=== PATIENT | female | born 1945 | race Caucasian/White ===

== ENCOUNTER 2022-02-17 06:45 | Day surgery (SDC) | payer MEDICARE ==
[~2022-02-17] VITALS: Ht 152.4 cm; Wt 88.2 kg
[~2022-02-17 06:45] MED LIST: CRESTOR5 MG PO
[2022-02-17] MEDS ORDERED: ACETAMINOPHEN500 MG PO (12:49)
[2022-02-17] MEDS ORDERED: IBUPROFEN600 MG PO (12:49)
[2022-02-17] MEDS ORDERED: OXYCODON-ACETA1 EAC2 PO (12:49)
--- NOTE | 2022-02-18 14:40 | OR ---
[facility] [address] [place], [place] [address] Signed DATE OF OPERATION: 02/17/2022 SURGEON: Madhuri Marshall MD PREOPERATIVE DIAGNOSIS: Left upper outer quadrant "papillary proliferation" uncertain regarding malignancy. POSTOPERATIVE DIAGNOSIS: Left upper outer quadrant "papillary proliferation" uncertain regarding malignancy. PROCEDURE: Left needle localized upper outer quadrant partial mastectomy. ANESTHESIA: General, LMA, Kashif Campos, BUSINESS SERVICES DIRECTOR INDICATIONS: This 76-year-old white woman is a patient of JULIO Willoughby. She underwent a mammogram which showed a cluster of calcifications and density of the breast highly suggestive of malignancy. She underwent core needle biopsy by Dr. Dasia Crespo ( radiologist). Pathology report was somewhat ambiguous showing tissue which was described as "atypical proliferation with possible invasive carcinoma." There does appear to be a palpable mass in the area in question. As there has been no definitive diagnosis for malignancy despite a biopsy well within the lesion in question, resectional therapy with needle localized guidance is recommended. Since a malignant diagnosis has not yet been established, one would not proceed with sentinel lymph node biopsy concurrently. At this time, needle localized excisional therapy is appropriate for definitive diagnosis. If malignancy is found, she understands there may be additional surgery to do particularly sentinel lymph node biopsy of the left axilla. Understanding the risk of bleeding, infection, cosmetic deformity, need for additional treatment should malignancy be found, and so forth, she wished to proceed. FINDINGS: Indeed the area was palpable and highly suspicious. Needle localization allowed for accurate localization of the abnormality though the palpable mass certainly was well demonstrated as well. Wide excision was undertaken excising a considerable amount of upper outer aspect breast tissue. This specimen was oriented with a short stitch superior long stitch laterally. Specimen radiograph confirmed the offending lesion to be in the specimen excised and was considered "optimal" by the radiologist. Parenchymal reapproximation was undertaken filling in the defect. Cosmetic result was good. Electronically Signed By: MADHURI MARSHALL MD 02/18/22 1440 PATIENT NAME: JAYLAN WARD OPERATIVE REPORT DATE OF : 41 REPORT #: [id number] PHYSICIAN: MADHURI MARSHALL MD PCP: TERE MCKEON PA-C REPORT IS CONFIDENTIAL AND NOT TO BE RELEASED WITHOUT AUTHORIZATION [facility] [address] [place], [place] [address] Signed DESCRIPTION OF PROCEDURE: The patient was received from the radiology suite with the wire emanating from the medial upper aspect of the left breast. I reviewed the films in detail with Dr. Calabrese. She had additionally marked the area corresponding to the dominant lesion. Palpation showed the lesion to be well demonstrated. After satisfactory general LMA anesthetic and administration of preoperative antibiotics, the left breast was prepared with a spray Betadine solution and draped sterilely. A curvilinear incision was made in the upper outer quadrant allowing for dissection through the dermis with electrocautery. The wire which was directed from medial to lateral was withdrawn through the depths of the wound and the parenchyma grasped with an Allis clamp. Palpation within the breast parenchyma demonstrated a thickened area, this was widely resected with electrocautery. A considerable excision of tissue was undertaken to provide a clinically negative margin. Wide resection was undertaken and the specimen was marked with a short stitch superior and long stitch lateral for extracting it from the breast itself. Once removed, it was sent for specimen radiograph, which confirmed the lesion to be in question and was considered optimally to resect it by the radiologist. Irrigation was undertaken in the wound. Hemostasis assured with electrocautery. Given the sizable defect in the upper outer quadrant, parenchymal reapproximation was undertaken with interrupted 2-0 Vicryl ultimately providing for good contour of the breast. The skin was closed with running subcuticular 3-0 Vicryl. Steri-Strips were applied as was Acticoat dressing. The patient tolerated the procedure well. Blood loss was minimal. Complications none. MD GANGA Mendoza/MODL /[id number] cc: MD Tere Higginbotham PA-C Electronically Signed By: MADHURI MARSHALL MD 02/18/22 1440 PATIENT NAME: JAYLAN WARD OPERATIVE REPORT DATE OF : 41 REPORT #: [id number] PHYSICIAN: MADHURI MARSHALL MD PCP: TERE MCKEON PA-C REPORT IS CONFIDENTIAL AND NOT TO BE RELEASED WITHOUT AUTHORIZATION [address] [address] Signed Copies: CHENG CALABRESE MD, CHLOE K PA-C ~ Electronically Signed By: MADHURI MARSHALL MD 02/18/22 1440 PATIENT NAME: JAYLAN WARD OPERATIVE REPORT DATE OF : 41 REPORT #: [id number] PHYSICIAN: MADHURI MARSHALL MD PCP: TERE MCKEON PA-C REPORT IS CONFIDENTIAL AND NOT TO BE RELEASED WITHOUT AUTHORIZATION
--- NOTE | 2022-03-03 16:26 | PATH ---
[facility] [address] [facility] [place], [place] [address] Signed SPECIMEN(S): A LEFT BREAST SPECIMEN SOURCE: A. LEFT BREAST CLINICAL HISTORY: Excisional biopsy of left breast atypical lesion with needle loc. Atypical ductal hyperplasia, left breast. Family history of breast CA. Short stitch is superior, long is lateral. 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 - Histologic type: Ductal carcinoma in situ, see Comment. - Size (extent) of DCIS: 4.2 x 3.8 x 2.2 cm. - Architectural patterns: Micropapillary, papillary and cribriform. - Nuclear grade: Grade 2 (intermediate). - Necrosis: Present, central (expansive "comedo" necrosis). - Microcalcifications: Present in DCIS. - Margin status: Margins involved by DCIS: Posterior and inferior margins. - Suspicious for lateral margin involvement. - 1.5 mm from superior margin. - Greater than 2 mm from all other margins. 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 - Regional lymph nodes: Not applicable (no regional lymph nodes submitted or found). - Breast biomarker studies: Pending, to be reported by an addendum. - Pathologic stage classification (pTNM, AJCC 8th ed.): See Comment. COMMENT: Intermingled within the DCIS are expanded ducts with a papillary epithelial growth pattern. Myoepithelial cells are absent within the fibrovascular cores but equivocally present surrounding some of the foci as seen with [facility] only. This raises the possibility of concurrent intermixed encapsulated papillary carcinoma (EPC), but that entity is usually comprised of a papillary mass with a cystic space. Of note, EPC is also staged similarly as DCIS, pTis (AJCC 8th ed). Given PATIENT NAME: JAYLAN WARD PATHOLOGY DATE OF : 41 REPORT #: [id number] PHYSICIAN: JONAH PATHOLOGY PCP: KOJO MCKEON PA-C REPORT IS CONFIDENTIAL AND NOT TO BE RELEASED WITHOUT AUTHORIZATION [facility] [address] [place] [id number] Signed this finding, the case will be sent for consultation at the [facility] and the results reported in an addendum. The final pathologic stage will also be reported in an addendum. As part of [employer] program, this case was reviewed in consultation with another member of our pathology staff (BEBA). NAL:cml:C1NR MICROSCOPIC EXAMINATION: Histologic sections of all submitted blocks are examined by light microscopy. These findings, together with the gross examination, support the pathologic diagnosis. The involved ducts are widely expanded. Immunohistochemical stains (with appropriately staining controls) were performed. The tumor cells overexpress ER and are negative for CK5/6 (A8). The expanded ducts have attenuated myoepithelial cells as demonstrated by [facility] (A8, A19, A25, A27); [id number] myoepithelial cells are not identified surrounding in all ducts (A8, A19, A25, A27). E-cadherin on a bilingual inside sales representative section shows loss of membranous reactivity in a focus of lobular neoplasia, supporting the diagnosis of ALH/LCIS. GROSS DESCRIPTION: The specimen, labeled "AV, A," and designated on the requisition "left breast tissue, short stitch is superior, long is lateral," is received in formalin and consists of a markedly ragged, irregularly-shaped, 90.1 g, 10.8 x 7.8 x 3.4 cm fibrofatty tissue piece that is oriented with a short suture indicating superior, and the long suture indicating lateral. The specimen has a silver metallic biopsy marker protruding from the anterior medial surface. Additionally, the specimen has a 4.2 cm long previous excision extending from anterior to posterior, into the specimen (see image). The specimen is inked as follows: Superior = blue; inferior = green; anterior = yellow; posterior = black; medial = red; lateral = orange. The specimen is sectioned from posterior to anterior into 16 slices to reveal an ill-defined, dense, carty-white, ill-defined, 4.2 x 3.8 x 2.2 cm area of dense fibroglandular tissue (slices 1-14) that is approximately 90% comprised of cystic structures. The cystic structures containing carty, paste-like material to dark brown, gelatinous material. Additionally, many of the cystic structures contain friable, carty tissue. This dense area grossly appears to involve the inferior, lateral, and deep margins. The area is 0.7 cm from the PATIENT NAME: JAYLAN WARD PATHOLOGY DATE OF : 41 REPORT #: [id number] PHYSICIAN: JONHA OCAMPO PCP: KOJO MCKEON PA-C REPORT IS CONFIDENTIAL AND NOT TO BE RELEASED WITHOUT AUTHORIZATION [address] [address] Signed superior margin, 1.5 cm from the medial margin, and 2.1 cm from the anterior margin. A biopsy marker is not grossly identified. The localization wire ends within the dense area in slice 2. The remaining parenchyma is comprised of yellow fibrofatty and carty-white fibroglandular tissue without an additional discrete mass/lesion. Fibroglandular tissue comprises approximately less than 5% of the remaining parenchyma. Tool Maker Bench sections are submitted as follows: (A1-A2) Deep end perpendicularly sectioned (slice 1) (A3-A5) Slice 2, trisected, entirely (A6-A8) Dense area to inferior margin (slice 3, 5, and 6, respectively) (A9-A13) Slice 7, cross-sectioned, entirely (A14) Dense area to inferior and lateral margin (slice 8) (A15) Dense fibrous area (slice 11) (A16) Nearest anterior margin to dense fibrous area (slice 12) (A17) Remaining parenchyma (slice 15) Cold ischemic time: 7 minutes per requisition from. Formalin fixation time: Approximately 24 hours. AI (under the direct supervision of a pathologist) Per request by Dr. Cooper, additional sections are submitted as follows: A18 slice 8 medial margin entirely A19-A24 slice 9 cross-sectioned, entirely AI 02/24/22 9:52am Per request by Dr. Cooper, additional sections are submitted as follows: A25 dense fibrous area (slice 4) A26-A29 dense fibrous area (slice 10) A30 dense fibrous area (slice 14) AI 02/24/22 1:12 PM The Gross Description was prepared using a voice recognition system. The report was reviewed for accuracy; however, sound-alike word errors, addition and/or deletions may occur. If there is any question about this report, please contact Client Services. ADDITIONAL NOTES: Immunohistochemical and/or in situ hybridization studies were performed on this case with the appropriate positive controls that react as expected. This test was developed and its performance characteristics determined by [employer]. It has not been cleared or approved by the U.S. Food and Drug Administration. The FDA has determined that such clearance or approval is not PATIENT NAME: JAYLAN WARD PATHOLOGY DATE OF : 41 REPORT #: [id number] PHYSICIAN: JONAH OCAMPO PCP: KOJO MCKEON PA-C REPORT IS CONFIDENTIAL AND NOT TO BE RELEASED WITHOUT AUTHORIZATION [facility] [address] [place] [address] Signed necessary. This test is used for clinical purposes. It should not be regarded as investigational or for research. [employer] is certified under the Clinical Laboratory Improvement Amendments of 1988 (CLIA) as qualified to perform high complexity clinical laboratory testing. This assay has not been validated for specimens that have been decalcified. The technical component was performed by [employer], [address] [place] [id number] (CLIA# [id number]). Professional interpretation was performed by [facility], [address] [place] [address] [address] (CLIA# [id number]). PERFORMING LABORATORY: The technical component was performed by [employer] [address] (CLIA# [id number]) Professional interpretation was performed by [employer] [facility], [address] [address] (IA# [id number]). Diagnostician: Monica Cooper MD Pathologist Electronically Signed 03/03/2022 Copies: ~ PATIENT NAME: JAYLAN WARD PATHOLOGY DATE OF : 41 REPORT #: [id number] PHYSICIAN: JONAH PATHOLOGY PCP: KOJO MCKEON PA-C REPORT IS CONFIDENTIAL AND NOT TO BE RELEASED WITHOUT AUTHORIZATION
== END 2022-02-17 14:30 | disposition home or self-care (01) ==
LOC: DS 06:45 → EDSTATUS 08:00 → DS 08:00 → US 08:00 → DS 14:30
PROVIDERS: ATTEND Surgery
PROC: 0HBU0ZZ Excision of Left Breast, Open Approach (ICD-10-PCS; principal; 2022-02-17 11:00)
DX: D05.82 Other specified type of carcinoma in situ of left breast (principal); E78.5 Hyperlipidemia, unspecified; Z80.3 Family history of malignant neoplasm of breast; Z96.611 Presence of right artificial shoulder joint; Z88.0 Allergy status to penicillin
CPT/HCPCS: 00400; 19285; 76098; 77065; 88305; 88341; 88342; 88360; J1100; J1644; J1885; J2001; J2405; J2704; J3010; J7121

== ENCOUNTER 2022-03-25 07:06 | Day surgery (SDC) | payer MEDICARE ==
[~2022-03-25] VITALS: Ht 152.4 cm; Wt 87.7 kg
[~2022-03-25 07:06] MED LIST changes: +ACETAMINOPHEN500 MG PO; +IBUPROFEN600 MG PO; +OXYCODON-ACETA1 EAC2 PO
--- NOTE | 2022-03-25 10:26 | NUR ---
03/25/22 Alessia6 Myra Alcantar 1022-PT TO PACU IN SUPINE POSITION. EYES CLOSED. DOES NOT RESPOND TO VERBAL OR TACTILE STIMULI. BREATHING EASY AND UNLABOERD WITH ORAL AIRWAY IN PLACE. SPO2 >95% ON 6 L O2 VIA SIMPLE MASK.
[2022-03-25] MEDS ORDERED: ACETAMINOPHEN500 MG PO (10:42)
[2022-03-25] MEDS ORDERED: OXYCODON-ACETA1 EAC2 PO (10:42)
[2022-03-25] MEDS ORDERED: IBUPROFEN600 MG PO (10:42)
--- NOTE | 2022-03-25 11:20 | NUR ---
1120-PATIENT BACK TO ROOM FROM PACU ON RA. RECEIVED REPORT FROM JENNIFER WOODWARD. PATIENT IS ALERT AND AWAKE. RESP EVEN AND UNLABORED. RATES PAIN 5/10, DENIES NAUSEA. LEFT BREAST DRESSING IS CLEAN, DRY, AND INTACT. DRESSING WITH DANIKA DRAIN IS CLEAN, DRY, AND INTACT. DANIKA DRAIN WNL. PATIENT IS TAKING SIPS OF WATER AND JUICE. PROVIDED PATIENT WITH CRACKERS. SON IN ROOM. CALL LIGHT WITHIN REACH. 1130-PATIENT TOLERATED CRACKERS AND JUICE. RATES PAIN NOW 4/10. 1132-PAIN MEDICTION GIVEN PER EMAR. HAS NO OTHER NEEDS AT THIS TIME.
--- NOTE | 2022-03-25 12:22 | NUR ---
1222-PATIENT LAYING IN BED AWAKE. RESP EVEN AND UNLABORED. RATES PAIN 3/10. DENIES PAIN. SURGICAL DRESSING HAS SMALL AMOUNT OF DRAINAGE. DANIKA DRESSING IS CLEAN, DRY, AND INTACT. SON IN ROOM. CALL LIGHT WITHIN REACH. 1230-PATIENT UP TO RESTROOM WITH 1 RN ASSIST. GAIT UNSTEADY BUT TOLERATED WELL. PATIENT VOIDED 300ML OF YELLOW URINE. 1235-PATIENT BACK TO ROOM. 1240-20ML FROM DANIKA DRAIN. TEACHING DONE ON TAKING CARE OF AND HOW TO EMPTY THE DRAIN. PATIENT VERBALIZED UNDERSTANDING.
--- NOTE | 2022-03-25 13:04 | NUR ---
1254 PATIENT WAS ABLE TO DRESS SELF AND TOLERATE IT WELL. IV D/C'D WNL. PATIENT EDUCATED ON KEEPING DANIKA DRAIN SECURE TO CLOTHES. PATIENT DISCHARGE INSTRUCTIONS GIVEN AND UNDERSTOOD. PATIENT WHEELED OUT OF FACILITY TO PRIVATE AUTO WITH SON.
--- NOTE | 2022-03-27 11:38 | OR ---
[facility] [address] [place], [place] [address] Signed DATE OF OPERATION: 03/25/2022 SURGEON: Madhuri Marshall MD PREOPERATIVE DIAGNOSES: 1. 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 2. Pigmented seborrheic keratosis of left breast. POSTOPERATIVE DIAGNOSES: 1. 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 2. Pigmented seborrheic keratosis of left breast. PROCEDURES: 1. Injection of methylene blue for sentinel lymph node identification. 2. Partial mastectomy (re-excision) of left upper outer quadrant of breast and placement of drain. Size 8 x 6 x 10 cm 3. Excision of skin lesion, 3.5 cm x 2.5 cm left breast site. ANESTHESIA: General, LMA. Gnia Goodwin CRNA and Ginette Newton CRNA. INDICATIONS: This 76-year-old white woman is a patient of Tere Nogueira PA-C. She underwent left upper outer quadrant breast excision for histologically proven ductal carcinoma in situ on February 17, 2022. A large specimen was excised to provide a clinically negative margin. The final pathology confirmed ductal carcinoma in situ, DCIS size of 4.2 cm. Additionally, noted within the substance of the DCIS were was micro papillary carcinoma with cribriform features interspersed within the DCIS. Margin status was suspicious in the lateral margin and there was atypical lobular hyperplasia or lobular carcinoma in situ involving some of the ducts. Review at tumor conference was undertaken confirming that re-excision would be appropriate anticipating radiation therapy ultimately. She is now to re-excision of the left upper outer quadrant area of the breast to provide for negative margin. Mindful of the ambiguous findings of papillary carcinoma, injection of methylene blue dye for possible sentinel lymph node identification will be undertaken concurrently. She understands and agrees, as does her son who accompanies her. The risks of Electronically Signed By: MADHURI MARSHALL MD 03/27/22 1138 PATIENT NAME: JAYLAN WARD OPERATIVE REPORT DATE OF : 41 REPORT #: [id number] PHYSICIAN: MADHURI MARSHALL MD PCP: TERE NOGUEIRA PA-C REPORT IS CONFIDENTIAL AND NOT TO BE RELEASED WITHOUT AUTHORIZATION [facility] [address] [place] [address] Signed bleeding, infection, cosmetic deformity, and so forth were reviewed and understood and she wishes to proceed. FINDINGS: The excision site was well approximated. Wide resection was undertaken fully. Methylene blue that was injected had lymphatic arborization to a small degree locally and some blue lymphatics were noted coursing through the breast parenchyma, but there was no true lymph node uptake and therefore lymph nodes were not excised in fact. Concurrent lymph tissue within the breast may be present, however. The specimen was oriented with a short stitch superior and long stitch lateral. A drain was utilized. DESCRIPTION OF PROCEDURE: The patient was brought to the operating room, given a general LMA type anesthetic. Preoperative antibiotic Ancef was given. Sequential compression device stockings were used and heparin subcutaneously administered. 1 mL of methylene blue dye was injected in the subepithelial space in the left upper outer aspect of the areolar margin. The incision from prior excision was in the upper outer aspect not far from the axilla itself. The breast was then prepared with a chlorhexidine solution and draped sterilely. Elliptical incision was made around the previous scar excising dermis in continuity with the breast parenchyma. Using electrocautery, resection was undertaken down to the pectoralis muscle itself. Wide resection was undertaken. There was one small area, where seromatous fluid was noted, but it is considered a complete re-excision of the site itself. There were a few blue lymphatics coursing through the parenchyma of the breast during the course of dissection, but no trail leading to the sentinel lymph nodes proper. The left axilla was gently dissected with blunt dissection assessing for sentinel lymph nodes manifest by blue dye, but none were seen. An extensive dissection was not undertaken. Irrigation was undertaken with sterile water to allow for its tumorolytic effect as well as to identify any ongoing bleeding. A separate stab incision was made in the inferior breast crease. A small Bebo drain was placed to the depths of the axilla. A buttonhole defect in the course of parenchymal excision had been closed with interrupted 2-0 Vicryl in the dermal side. A small portion of skin was excised to allow for more cosmetic closure of the wound after parenchymal re-approximation with interrupted 2-0 Vicryl. The skin was closed with running subcuticular 3-0 Vicryl. Steri-Strips were applied as well. The breast contour was largely preserved despite the relatively large excision of parenchyma excised. Not mentioned previously was excision at the outset of operation of a 3 cm pigmented lesion in the Electronically Signed By: MADHURI MARSHALL MD 03/27/22 1138 PATIENT NAME: JAYLAN WARD OPERATIVE REPORT DATE OF : 41 REPORT #: [id number] PHYSICIAN: MADHURI MARSHALL MD PCP: TERE NOGUEIRA PA-C REPORT IS CONFIDENTIAL AND NOT TO BE RELEASED WITHOUT AUTHORIZATION [address] [place] [address] Signed inferior aspect of the left breast, which most likely represented a pigmented seborrheic keratosis. This was excised prior to excision of any other lesion of the breast with full-thickness dermis excised. This was then closed with interrupted 3-0 Vicryl in deep dermal layer and running subcuticular 3-0 Vicryl for the skin and Steri-Strips had been applied as had been an OpSite. The patient was ultimately extubated and transferred to the recovery room in good condition, having suffered no complication. MD GANGA Mendoza/NADER /[id number] cc: REECE Tena MD Juno Choe, MD, PH.D. Copies: TERE NOGUEIRA PA-C, ROBERT C MD CHOE, JUNO ~ Electronically Signed By: MADHURI MARSHALL MD 03/27/22 1138 PATIENT NAME: JAYLAN WARD OPERATIVE REPORT DATE OF : 41 REPORT #: [id number] PHYSICIAN: MADHURI MARSHALL MD PCP: TERE NOGUEIRA PA-C REPORT IS CONFIDENTIAL AND NOT TO BE RELEASED WITHOUT AUTHORIZATION
--- NOTE | 2022-03-30 09:35 | PATH ---
[facility] [address] [place], [place] [address] Signed SPECIMEN(S): A LEFT BREAST INFERIOR SKIN LESION SPECIMEN(S): B LT BREAST UPPER OUTER QUADRANT RE-EXCISION SPECIMEN SOURCE: A. LEFT BREAST INFERIOR SKIN LESION B. LT BREAST UPPER OUTER QUADRANT RE-EXCISION CLINICAL HISTORY: Atypical ductal hyperplasia, left breast Specimen Time to Fixation- 03/25/2022 10:07:00 AM FINAL PATHOLOGIC DIAGNOSIS: A. Skin lesion, left breast, inferior, excision: - Seborrheic keratosis, narrowly excised. - Negative for malignancy. B. 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 - Specimen laterality: Left. - Tumor site: Upper outer quadrant. - Histologic type: Ductal carcinoma in situ. - Size (extent) of DCIS: At least 11 mm in greatest dimension. - Number of blocks with DCIS: 7. - Number of blocks examined: 31. - Architectural patterns: Cribriform, micropapillary, and papillary. - Nuclear grade: Grade 2. - Necrosis: Present, focal small foci of necrosis. - Microcalcifications: Present in DCIS and non-neoplastic tissue. - Margin status: All margins negative for DCIS. - Distance from DCIS to closest margin: Less than 1 mm from posterior margin, all other margins at least 2 mm away. - Regional lymph node status: Not applicable (no regional lymph nodes submitted or found). - Distant sites involved: Not applicable. - Pathologic stage classification: pTis, pN not assigned (no nodes submitted or found). - Additional findings: Biopsy site changes, fat necrosis. - Special studies: ER/FL positive per previous report (see [id number]). COMMENT: PATIENT NAME: JAYLAN WARD PATHOLOGY DATE OF : 41 REPORT #: [id number] PHYSICIAN: JONAH PATHOLOGY PCP: KOJO MCKEON PA-C REPORT IS CONFIDENTIAL AND NOT TO BE RELEASED WITHOUT AUTHORIZATION [facility] [address] [place], [place] [address] Signed As part of [employer] Quality Improvement Program, this case was reviewed by another member of our pathology staff. A diagnostic alert was initiated by Dr. Zhang on 03/29/2022. DDF:[facility]:C1NR MICROSCOPIC EXAMINATION: Histologic sections of all submitted blocks are examined by light microscopy. These findings, together with the gross examination, support the pathologic diagnosis. GROSS DESCRIPTION: Two specimens are received in two containers, labeled "AV." A. The specimen, labeled "AV, A," and designated on the requisition "skin lesion, L, breast inferior," is received in formalin and consists of an unoriented, bumpy, somewhat friable, palmer to brown, 1.9 x 1.7 x 0.4 cm skin segment. The resection margin is inked blue and the specimen is cross-sectioned to reveal carty-white, homogenous subcutaneous tissue that grossly appears uninvolved by the palmer discolored skin surface. The specimen is submitted entirely in 2 cassettes (A1-A-2). B. The specimen, labeled "AV, B," and designated on the requisition "left upper outer quadrant re-excision, left breast (long stitch lateral, short stitch superior)," is received in formalin and consists of an irregularly-shaped, 109.9 g, 8.2 x 6.4 x 4.3 cm fibrofatty tissue piece that is oriented with a short suture indicates. A long suture indicating lateral. On the anterior surfaces specimen is a carty, 5.4 x 1.1 cm, slightly irregularly-shaped skin segment with a well-healed, 4.6 cm long, 0.1 cm in diameter skin scar that is 0.1 cm from the nearest peripheral skin margin. The specimen is inked as follows: Superior = blue; inferior = green; anterior = yellow; posterior = black; medial = red; lateral = orange. The specimen is sectioned from medial to lateral into 10 slices to reveal an ill-defined, 6.1 x 4.1 x 1.7 cm cavity consistent with a possible previous lumpectomy site. The inner surface of the cavity is without contents and is lined by carty-white, smooth fibrous tissue. The cavity is 0.5 cm from the medial margin, 0.7 cm from the superior margin, 0.7 cm of the deep margin, 1.0 cm from the anterior margin, 1.5 cm from the inferior margin, 2.3 cm from the skin, and 2.9 cm from the lateral margin. Surrounding the cavity are multiple, focal areas of clear to dark brown gelatinous filled, smooth inner walled cystic structures from 0.5-1.2 cm in greatest PATIENT NAME: JAYLAN WARD PATHOLOGY DATE OF : 41 REPORT #: [id number] PHYSICIAN: JONAH OCAMPO PCP: KOJO MCKEON PA-C REPORT IS CONFIDENTIAL AND NOT TO BE RELEASED WITHOUT AUTHORIZATION [address] [address] Signed dimension. The cystic structures are 1.2 cm from the nearest resection margin-deep, and greater than 1.5 cm from the remaining margins. Additionally surrounding the cavity is multiple focal areas of chalky carty to yellow, ill-defined tissue up to 1.5 cm wide, and consistent with possible fat necrosis. The chalky tissue grossly appears to involve the medial, anterior, deep, and superior margins. The chalky tissue is 1.3 cm from the inferior margin and 2.5 cm from the lateral margin. An additional discrete mass/lesion is not grossly identified. The biopsy marker is not grossly identified. The remaining parenchyma is comprised of yellow fibrofatty and carty-white for glandular tissue without additional discrete mass/lesion. Fibroglandular tissue comprises approximately less than 5% of the remaining parenchyma. [employer] sections are submitted as follows: B1-B2 perpendicular sections of the medial end (slice one) B3-B9 slice 3 cross-sectioned, entirely B10 cavity to deep margin (slice 2) B11 cystic structures (slice 4) B12-B19 full cross-section of slice 5 B20 chalky tissue to skin (slice 6) B21-B28 full cross-section of slice 8 B29-B31 perpendicular sections of the lateral end (slice 10) Cold ischemic time: 29 minutes per requisition form Formalin fixation time: Approximately 71.5 hours AI (under the direct supervision of a pathologist) The Gross Description was prepared using a voice recognition system. The report was reviewed for accuracy; however, sound-alike word errors, addition and/or deletions may occur. If there is any question about this report, please contact Client Services. PERFORMING LABORATORY: The technical component was performed by [employer], [address] [place] [id number] (CLIA# [id number]). Professional interpretation was performed by [employer], [facility], [address] [place] [id number] (CLIA#: [id number]) Diagnostician: Casimiro Zhang DO Pathologist Electronically Signed 03/30/2022 PATIENT NAME: JAYLAN WARD PATHOLOGY DATE OF : 41 REPORT #: [id number] PHYSICIAN: JONAH OCAMPO PCP: KOJO MCKEON PA-C REPORT IS CONFIDENTIAL AND NOT TO BE RELEASED WITHOUT AUTHORIZATION [address] [address] Signed Copies: ~ PATIENT NAME: JAYLAN WARD PATHOLOGY DATE OF : 41 REPORT #: [id number] PHYSICIAN: JONAH OCAMPO PCP: KOJO MCKEON PA-C REPORT IS CONFIDENTIAL AND NOT TO BE RELEASED WITHOUT AUTHORIZATION
== END 2022-03-25 12:54 | disposition home or self-care (01) ==
LOC: DS 07:06 → MS 08:55 → EDSTATUS 10:15 → DS 10:15 → MS 10:15 → DS 12:54
PROVIDERS: ATTEND Surgery
PROC: 3E0W3HZ Introduction of Radioactive Substance into Lymphatics, Percutaneous Approach (ICD-10-PCS; 2022-03-25)
PROC: 0HB5XZZ Excision of Chest Skin, External Approach (ICD-10-PCS; 2022-03-25)
PROC: 0HBU0ZZ Excision of Left Breast, Open Approach (ICD-10-PCS; principal; 2022-03-25 08:55)
DX: D05.12 Intraductal carcinoma in situ of left breast (principal); L82.1 Other seborrheic keratosis; E66.9 Obesity, unspecified; E78.5 Hyperlipidemia, unspecified; Z68.37 Body mass index [BMI] 37.0-37.9, adult; Z80.3 Family history of malignant neoplasm of breast; Z88.0 Allergy status to penicillin
CPT/HCPCS: 00400; 36415; 80053; 85025; J0131; J1100; J1170; J1644; J1885; J2001; J2250; J2405; J2704; J3010; J7121; Q9968

== ENCOUNTER 2024-11-23 19:44 | Emergency (ER) | payer MEDICARE, OTHER ==
[~2024-11-23] VITALS: Ht 152.4 cm; Wt 92.2 kg
[2024-11-23 22:04] LABS: BASOPHILS 0.3 % (0-2); EOSINOPHILS 0.7 % (0-6); HEMATOCRIT 38.7 % (35.0-50.0); HEMOGLOBIN 13.4 g/dL (12.0-18.0); MCH 32.4 (27-36); MCHC 34.6 g/dl (30-36); MCV 93.6 fl (81-99); PLATELET COUNT 214 K/uL (140-440); RBC 4.13 M/ul (4.3-5.7); RDW 12.2 (10.5-15.0)
[2024-11-23 22:19] LABS: ALBUMIN/GLOBULIN RATIO 1.14 (1.1-2.4); ANION GAP 13.9 (7-21); BILIRUBIN, TOTAL 0.3 mg/dL (0.2-1.0); BUN/CREATININE RATIO 12.62 (6.0-28.6); CALCIUM 10.5 mg/dL (8.5-10.1); CREATININE, SERUM 1.03 mg/dL (0.55-1.02); MAGNESIUM 2.2 mg/dL (1.8-2.4); POTASSIUM 3.9 mmol/L (3.5-5.1); PROTEIN, TOTAL 7.5 g/dL (6.4-8.2)
[2024-11-23] MEDS ORDERED: CONSTULOSE10 GM/15 M PO (23:06)
[2024-11-23] MEDS ORDERED: MAGNESIUM CITRATE 300 ML BTL PO ONE (23:15)
[2024-11-23] MEDS ORDERED: LACTULOSE 20 GM/30 ML CUP PO ONE (23:15)
[2024-11-23 23:20] VITALS: BP 141/75
== END 2024-11-23 23:21 | disposition home or self-care (01) ==
LOC: ED 19:44
PROVIDERS: Family Medicine
DX: K59.00 Constipation, unspecified (principal); Z88.0 Allergy status to penicillin; Z79.899 Other long term (current) drug therapy
CPT/HCPCS: 36415; 74018; 80053; 83735; 85025; 99283

== ENCOUNTER 2025-02-11 09:22 | Day surgery (SDC) | payer MEDICARE, OTHER ==
[~2025-02-11] VITALS: Ht 152.4 cm; Wt 86.8 kg
[~2025-02-11 09:22] MED LIST changes: +ADRENOID CAPSU1 EACH PO; +ANASTROZOLE1 MG PO; +BACTRIM DS TAB1 EACH PO; +CALCIUM 250-D1 EACH PO; +CEFAZOLIN SODIUM 2 GM/20 ML SYR IV SCH; +CONSTULOSE10 GM/15 M PO; +CRESTOR40 MG PO; -CRESTOR5 MG PO; +DAILY VALUE1 EACH PO; +FISH OIL + D31 EACH PO; +IBLOOD GLUCOSE TEST STRIP 1 EA TEST VI PRN; +LACTATED RINGER'S 1,000 ML IV SCH; +LIDOCAINE HCL 1% 5 ML SDV INJ ONE; +LOFENA25 MG PO; +MIDAZOLAM HCL 5 MG/5 ML VIAL IV PRN; +VITAMIN D350 MCG PO; +fentaNYL citrate 100 MCG/2 ML VIAL IV PRN
[2025-02-11 09:42] VITALS: BP 169/63
[2025-02-11] MEDS ORDERED: MIDAZOLAM HCL 5 MG/5 ML VIAL ONE (10:14)
[2025-02-11] MEDS ORDERED: fentaNYL citrate 100 MCG/2 ML VIAL ONE (10:14)
--- NOTE | 2025-02-11 11:22 | NUR ---
02/11/25 1122 Alexia Núñez PATIENT ARRIVES IN PACU MOANING AND STATING "MY TUMMY HURTS." PATIENT IS SUPINE. SHE IS ENCOURAGED TO REPOSITION HERSELF ONTO HER LEFT SIDE. SHE DOES WELL WITH THAT. PATIENT REPORTS "I'M HOT." WARM BLANKETS ARE REMOVED FROM THE PATIENT. PATIENT IS RESTING QUIETLY, WITH HER EYES CLOSED. RESPIRATIONS EVEN AND UNLABORED.
[2025-02-11 12:32] VITALS: BP 144/58
--- NOTE | 2025-02-13 08:13 | PATH ---
[facility] [address] [facility] [place], [place] [address] Signed SPECIMEN(S): A DESCENDING COLON BIOPSY SPECIMEN(S): B SIGMOID COLON BIOPSY SPECIMEN(S): C RECTUM SPECIMEN SOURCE: A. DESCENDING COLON BIOPSY B. SIGMOID COLON BIOPSY C. RECTUM CLINICAL HISTORY: Chronic constipation, history of breast cancer, colitis left side of sigmoid FINAL PATHOLOGIC DIAGNOSIS: A. Colon, descending, biopsy - Colonic mucosa with no significant pathologic changes B. Colon, sigmoid, biopsy - Colonic mucosa with chronic active colitis C. Rectum, biopsy - Colonic mucosa with chronic active colitis COMMENT: For parts B and C, no dysplasia, granulomas, or viral cytopathic changes are seen. [facility] MICROSCOPIC EXAMINATION: Histologic sections of all submitted blocks are examined by light microscopy. These findings, together with the gross examination, support the pathologic diagnosis. GROSS DESCRIPTION: A. The specimen, labeled and designated "Velho, descending colon biopsy," is received in formalin and consists of two carty soft tissue fragments, ranging from 0.3-0.4 cm. Entirely submitted in (A1). B. The specimen, labeled and designated "Velho, sigmoid colon biopsy," is received in formalin and consists of nine carty soft tissue fragments, ranging from 0.1-0.3 cm. Entirely submitted in (B1). C. The specimen, labeled and designated "Velho, rectum biopsy," is received in formalin and consists of five carty soft tissue fragments, ranging from 0.1-0.6 cm. Entirely submitted in (C1). VB (under the direct supervision of a pathologist) PATIENT NAME: JAYLAN WRAD PATHOLOGY DATE OF : 41 REPORT #: [id number] PHYSICIAN: JONAH OCAMPO PCP: KOJO MCKEON PA-C REPORT IS CONFIDENTIAL AND NOT TO BE RELEASED WITHOUT AUTHORIZATION [facility] [address] [place], [place] [address] Signed The Gross Description was prepared using a voice recognition system. The report was reviewed for accuracy; however, sound-alike word errors, addition and/or deletions may occur. If there is any question about this report, please contact Client Services. ADDITIONAL NOTES: Immunohistochemical and/or in situ hybridization studies if performed in this case included appropriate positive controls that reacted as expected. This test was developed and its performance characteristics determined by [employer]. It has not been cleared or approved by the U.S. Food and Drug Administration. The FDA has determined that such clearance or approval is not necessary. This test is used for clinical purposes. It should not be regarded as investigational or for research. [employer] is certified under the Clinical Laboratory Improvement Amendments of 1988 (CLIA) as qualified to perform high complexity clinical laboratory testing. PERFORMING LABORATORY: Technical component was performed by [employer], [address] [place] [id number] (CLIA# [id number]). Professional interpretation was performed by [facility], [address] [place] [id number] (CLIA#: [id number]). Diagnostician: Sky Guzman MD Pathologist Electronically Signed 02/13/2025 Copies: ~ PATIENT NAME: JAYLAN WARD PATHOLOGY DATE OF : 41 REPORT #: [id number] PHYSICIAN: JONAH PATHOLOGY PCP: KOJO MCKEON PA-C REPORT IS CONFIDENTIAL AND NOT TO BE RELEASED WITHOUT AUTHORIZATION
--- NOTE | 2025-02-13 15:53 | OR ---
[facility] [address] [place], [place] [address] Signed DATE OF OPERATION: 02/11/2025 SURGEON: Madhuri Marshall MD PREOPERATIVE DIAGNOSIS: History of chronic constipation, improved with lactulose. POSTOPERATIVE DIAGNOSIS: Inflammation of rectosigmoid and left colon. No evidence of neoplasm, stricture or polyp. PROCEDURE: Total colonoscopy to cecum with biopsies of left colon, sigmoid and rectum. ANESTHESIA: Intravenous sedation, fentanyl 100 mcg, Versed 6 mg. INDICATION: This 79-year-old white woman is a patient of JULIO Willoughby and was referred for colonoscopy. She last underwent colonoscopy 10 years ago in [place], [place] where she was said to have had a "gut problem." She presented to emergency room on November 23 with constipation, was prescribed lactulose. She notes it was not very helpful. Dr. Negro, her oncologist, did recommend a pill of unknown type, which "gassed her up." She then took a Smooth Move herbal tea which has Senna in it and this has been much more helpful to her. She notes that in her colonoscopy 10 years ago, she was said to have a "narrowing" of the colon and uncertain if there was diverticula or perhaps stricture. She has no family history of colon cancer and has had no blood per rectum or diarrhea. She is admitted at this time to undergo colonoscopy, understands the risk of bleeding, infection, and perforation. FINDINGS: The prep was adequate. Complete colonoscopy was undertaken of the cecum. She had no obvious diverticula and certainly no stricture of the colon. Notable was, however, inflammatory changes of the left colon, sigmoid and to some extent the proximal rectum. There was no evidence of polyp or neoplasm. Biopsies were obtained. DESCRIPTION OF PROCEDURE: The patient was brought to the endoscopy suite and placed in lateral decubitus position, given intravenous sedation to the point of slurred speech and nystagmus. Digital rectal examination was normal. Electronically Signed By: MADHURI MARSHALL MD 02/13/25 1553 PATIENT NAME: JAYLAN WARD OPERATIVE REPORT DATE OF : 41 REPORT #: [id number] PHYSICIAN: MADHURI MARSHALL MD PCP: TERE NOGUEIRA PA-C REPORT IS CONFIDENTIAL AND NOT TO BE RELEASED WITHOUT AUTHORIZATION [facility] [address] [place] [id number] Signed An Olympus video colonoscope was passed in the rectum and manipulated throughout the colon ultimately intubating the cecum. Ileocecal valve and appendiceal orifice were normal. Scope was withdrawn and biopsied and observation showed no sign of inflammatory change or other problem from the right colon, transverse, or other area. Upon entering the left colon, however, there did appear to be inflammatory change, no ulcerations and certainly no strictures, no diverticula or neoplasm. Biopsies were obtained the left colon, sigmoid and ultimately the rectum. Retroflexed view of the rectum showed some hemorrhoidal changes. The scope was removed. The patient was taken to the recovery room in good condition. CONCLUDING DIAGNOSIS: Inflammatory changes of left colon and sigmoid and to a lesser extent rectum. This is rather discordant with her original complaints of constipation. We will see what the pathology shows. We will see her back in the office in approximately four weeks. Madhuri Marshall MD JM/MODL /[id number] cc: Tere Nogueira PA-C Copies: TERE NOGUEIRA PA-C ~ Electronically Signed By: MADHURI MARSHALL MD 02/13/25 1553 PATIENT NAME: JAYLAN WARD OPERATIVE REPORT DATE OF : 41 REPORT #: [id number] PHYSICIAN: MADHURI MARSHALL MD PCP: TERE NOGUEIRA PA-C REPORT IS CONFIDENTIAL AND NOT TO BE RELEASED WITHOUT AUTHORIZATION
== END 2025-02-11 12:40 | disposition home or self-care (01) ==
LOC: DS 09:22
PROVIDERS: ATTEND Surgery
PROC: 0DBN8ZX Excision of Sigmoid Colon, Via Natural or Artificial Opening Endoscopic, Diagnostic (ICD-10-PCS; 2025-02-11)
PROC: 0DBP8ZX Excision of Rectum, Via Natural or Artificial Opening Endoscopic, Diagnostic (ICD-10-PCS; 2025-02-11)
PROC: 0DBG8ZX Excision of Left Large Intestine, Via Natural or Artificial Opening Endoscopic, Diagnostic (ICD-10-PCS; principal; 2025-02-11 10:15)
DX: K52.9 Noninfective gastroenteritis and colitis, unspecified (principal); E66.9 Obesity, unspecified; N60.92 Unspecified benign mammary dysplasia of left breast; K59.09 Other constipation; Z68.37 Body mass index [BMI] 37.0-37.9, adult
CPT/HCPCS: 99153; G0500; J0690; J2250; J3010; J7121